=== PATIENT | female | born 1960 | race Caucasian/White ===

== ENCOUNTER 2017-12-10 10:54 | Emergency (ER) | payer OTHER, SELFPAY ==
[2017-12-10 10:56] VITALS: BP 86/54; PULSE 69; RESP 14; TEMP 36.5; O2SAT 100; BMI 22.1
--- NOTE | 2017-12-10 12:07 | ED.VISSUMM ---
- ER Visit Summary Date of Service: 12/10/17 Chief Complaint: [Injury right fifth toe] History of Present Illness: The patient is a 57 F [presents the emergency department with complaint of injury to her right small toe that occurred prior to arrival in the emergency department. Patient states that she accidentally kicked the couch.] Physical Examination: [Right foot-patient does have obvious deformity to the small toe with lateral angulation. Normal sensation. Normal cap refill. Patient does have tenderness over the proximal phalanx.] Test Results: [X-rays of the right toes that show a fracture of the proximal phalanx.] Emergency Department Course and Treatment: [Patient had a digital block performed using 1% lidocaine total of 4 cc used. During the performance of the digital block the toe easily reduced to a more normal anatomic position.] Treatment Plan: [Patient will have toes shaquille taped and will be given a postop shoe.] Patient will be given a prescription for [place] for pain. Disposition: [Discharged home in stable condition] patient advised to follow-up with primary care physician in 5-7 days. Impression: [Right fifth toe fracture.] This note was generated with [employer] dictation software. It may contain incorrect words, spelling, and punctuation that were not noted in review of the chart prior to signing ED Disposition - Plan for ED Patient: Chief Complaint: Lower Extremity Injury Referrals: Irma Simental DO [Primary Care Provider] -
--- NOTE | 2017-12-10 12:09 | ED.DEP ---
ED Disposition - Plan for ED Patient: Chief Complaint: Lower Extremity Injury Instructions: ED Fx Toe Closed Prescriptions: Hydrocodone/Acetaminophen [[place] 5-325 Tablet] 1 ea PO 4X/DAY PRN PRN 5 Days #20 tab PRN Reason: Pain Referrals: Irma Simental DO [Primary Care Provider] - 5-7 Days
[2017-12-10 12:47] VITALS: BP 130/80; PULSE 80; RESP 18; TEMP 36.6; O2SAT 99
== END 2017-12-10 13:08 | disposition home or self-care (01) ==
PROVIDERS: Emergency Provider Emergency Medicine; Family Provider Internal Medicine; PCP Internal Medicine
DX: S92.511A Displaced fracture of proximal phalanx of right lesser toe(s), initial encounter for closed fracture (principal); Z79.899 Other long term (current) drug therapy; W22.09XA Striking against other stationary object, initial encounter; Y93.89 Activity, other specified; Y92.008 Other place in unspecified non-institutional (private) residence as the place of occurrence of the external cause; Y99.8 Other external cause status
CPT/HCPCS: 28515; 26725; 73660; 99282

== ENCOUNTER → 2023-01-29 | Outpatient (CLI) | payer OTHER, SELFPAY | END | disposition home or self-care (01) | PROVIDERS: PCP Internal Medicine; Visit Provider Physician Assistant | DX: R30.0 Dysuria (principal) | CPT/HCPCS: 87086; 87088 ==

== ENCOUNTER → 2023-05-17 | Outpatient (CLI) | payer OTHER, SELFPAY ==
[2023-05-17 11:23] LABS: Cholesterol 203 mg/dL (200); High Density Lipoprotein 38 mg/dL; Triglycerides 134 mg/dL; Very Low Density Lipoprotein 27 mg/dL (5-40)
== END | disposition home or self-care (01) ==
LOC: LAB 10:08
PROVIDERS: PCP Internal Medicine; Referring Provider Internal Medicine Cardiovascular Disease; Visit Provider Internal Medicine Cardiovascular Disease
DX: I77.9 Disorder of arteries and arterioles, unspecified (principal)
CPT/HCPCS: 36415; 80061

== ENCOUNTER → 2023-05-30 | Outpatient (CLI) | payer OTHER, SELFPAY ==
--- NOTE | 2023-05-30 08:50 | CDU_ITS ---
Reason For Study: CAD Rt. Velocities/BP Lt. Velocities/BP Prox CCA 84.4/25.8 cm/sec. Prox CCA 90/28.6 cm/sec. Mid CCA 80.6/24.8 cm/sec. Mid CCA 81.4/27.4 cm/sec. Dist CCA 78.7/30.5 cm/sec. Dist CCA 82.6/29.8 cm/sec. Prox ICA 69.6/27.8 cm/sec. Prox ICA 121.1/35.3 cm/sec. Mid ICA 94.9/39.9 cm/sec. Mid ICA 115.8/43.3 cm/sec. Dist ICA 94.9/36.6 cm/sec. Dist ICA 81.4/29.8 cm/sec. Rt. ICA/CCA = 1.18. Lt. ICA/CCA = 1.47. Prox ECA 106.9/28.9 cm/sec. Prox ECA 90/24.9 cm/sec. Rt. Vert. 42.2/14.4 cm/sec. Lt. Vert. 52.2/20.1 cm/sec. Right Extracranial There is intimal thickening but no significant atherosclerotic plaque noted in the right common carotid artery. There is intimal thickening but no significant atherosclerotic plaque noted in the right internal carotid artery. There is intimal thickening but no significant atherosclerotic plaque noted in the right external carotid artery. Antegrade flow is noted in the right vertebral artery. Left Extracranial There is intimal thickening but no significant atherosclerotic plaque noted in the left common carotid artery. There is intimal thickening but no significant atherosclerotic plaque noted in the left internal carotid artery. There is intimal thickening but no significant atherosclerotic plaque noted in the left external carotid artery. Antegrade flow is noted in the left vertebral artery. Procedure Carotid Duplex 33669. This is a Carotid Duplex examination using B-mode, color flow and specral Doppler. Exam performed in department. VL/Carotid Duplex Ultrasound Interpretation Summary Normal right extracranial internal carotid. Normal left extracranial internal carotid. Patent and antegrade vertebrals bilaterally. Ordering Physician: Katherine Toro Referring Physician: Irma Simental M.D. Performed By: Shana Romero RVT
--- OUTSIDE RECORDS SUMMARY | 2023-05-30 09:11 | XMS RPT_ITS | CCD ---
Author Name Unknown Address [address] [place] [address] Organization [facility] Care Team Providers Care Stocking Inspector Name Role Phone YENNIFER KIRBY Admitting Unavailable YENNIFER KIRBY Attending Unavailable YENNIFER KIRBY Primary Care Unavailable YENNIFER KIRBY Consulting Unavailable PROVIDER, UNKNOWN Consulting Unavailable Irma Hwang DO Unavailable Mani ROSALES, Josse Story Unavailable [phone] Vianey Mejia RN Unavailable Unavailable Unavailable Unavailable Irma Hwang DO Unavailable Irma Hwang DO Primary Care Provider Irma Hwang DO Primary Care Provider IRMA HWANG Primary Care Unavailab IRMA Austin Primary Care Unavailab le Medications Current Medications Medication Drug Class(es) Dates Sig (Normalized) Sig (Original) cephalexin 500 mg oral capsule (2 sources) Cephalosporin Antibacterial Start: 11-17-2022 End: 11-24-2022 take 1 capsule by mouth twice daily cephALEXin (KEFLEX) 500 mg capsule Take 1 capsule by mouth twice daily for 7 days. 14 capsule 0 11/17/2022 11/24/2022 Active Completed/Discontinued Medications Medication Drug Class(es) Dates Sig (Normalized) Sig (Original) ALPRAZolam 0.5 mg oral tablet (2 sources) Benzodiazepine Start: 05-02-2017 take 1 tablet by mouth once daily at bedtime as needed ALPRAZolam 0.5 MG Oral Tablet 1 (one) Tablet qhs prn for 0 days Quantity: 20 {Tablet} Refills: 0 Ordered: 02-May-2017 Hola DO, Irma Tyler DO Start : 02-May-2017 Active Comments: [id number] Problems Active Problems Problem Classification Problem Date Documented Da te Episodic/Chronic Adjustment disorders (4 sources) Grief finding; Translations: [Grieving] 05-02-2017 Chronic Administrative/social admission (14 sources) Patient encounter status; Translations: [Nutritional counseling] 05-02-2017 Episodic Cardiac dysrhythmias (8 sources) Palpitations; Translations: [Palpitations] 05-02-2017 Episodic Genitourinary symptoms and ill-defined conditions (6 sources) Genuine stress incontinence; Translations: [Stress incontinence] 05-02-2017 Chronic Past or Other Problems Problem Classification Problem Date Documented Da te Episodic/Chronic Nonmalignant breast conditions (3 sources) Cyst of breast; Translations: [Solitary cyst of unspecified breast] Onset: 07-27-2009 07-27-2009 Episodic NEGATED: Highlighted row has been ruled out!Unclassified (2 sources) Problem Onset: 08-14-2013 05-02-2017 Results Test Name Value Interpretation Reference Range Facil ity Vital Signs Date Time Vital Sign Value Performing Clinician Facility 11-17-2022 08:20-0400 Body temperature 98.71 [degF] Gama Ruiz APRN.FACILITIES AND GROUNDS DIRECTOR Work Phone: [facility] 11-17-2022 08:20-0400 Body weight 63.96 kg Gama Ruiz APRN.FACILITIES AND GROUNDS DIRECTOR Work Phone: [facility] 11-17-2022 08:20-0400 Diastolic blood pressure 70 mm[Hg] Gama Ruiz TAX COLLECTION COORDINATOR.FACILITIES AND GROUNDS DIRECTOR Work Phone: [facility] 11-17-2022 08:20-0400 Heart rate 88 /min Gama Ruiz APRN.FACILITIES AND GROUNDS DIRECTOR Work Phone: [facility] 11-17-2022 08:20-0400 Respiratory rate 16 /min Gama Ruiz APRN.FACILITIES AND GROUNDS DIRECTOR Work Phone: [facility] 11-17-2022 08:20-0400 SaO2% (BldA) [Mass fraction] 96 % Gama Ruiz TAX COLLECTION COORDINATOR.FACILITIES AND GROUNDS DIRECTOR Work Phone: [facility] 11-17-2022 08:20-0400 Systolic blood pressure 126 mm[Hg] Gama Ruiz APRN.FACILITIES AND GROUNDS DIRECTOR Work Phone: [facility] 03-05-2022 19:48-0500 Body temperature 98.8 [degF] Lorie Berry APRN.FACILITIES AND GROUNDS DIRECTOR Work Phone: [facility] 03-05-2022 19:48-0500 Body weight 65.23 kg Lorie Berry APRN.FACILITIES AND GROUNDS DIRECTOR Work Phone: [facility] 03-05-2022 19:48-0500 Diastolic blood pressure 84 mm[Hg] Lorie Berry APRN.FACILITIES AND GROUNDS DIRECTOR Work Phone: [facility] 03-05-2022 19:48-0500 Heart rate 88 /min Lorie Berry APRN.FACILITIES AND GROUNDS DIRECTOR Work Phone: [facility] 03-05-2022 19:48-0500 Respiratory rate 21 /min Lorie Berry APRN.FACILITIES AND GROUNDS DIRECTOR Work Phone: [facility] 03-05-2022 19:48-0500 SaO2% (BldA) [Mass fraction] 100 % Lorie Berry APRN.FACILITIES AND GROUNDS DIRECTOR Work Phone: [facility] 03-05-2022 19:48-0500 Systolic blood pressure 122 mm[Hg] Lorie Berry APRN.FACILITIES AND GROUNDS DIRECTOR Work Phone: [facility] 05-02-2017 08:45-0500 Body height 160.02 cm Vianey Mejia RN [facility]; [facility] Work Phone: 05-02-2017 08:45-0500 Body mass index (BMI) [Ratio] 23.45 kg/m2 Vianey Mejia RN [facility]; [facility] Work Phone: 05-02-2017 08:45-0500 Body surface area Derived from formula 1.62 m2 Vianey Mejia RN [facility]; [facility] Work Phone: 05-02-2017 08:45-0500 Body weight 60.05 kg Vianey Mejia RN [facility]; [facility] Work Phone: 05-02-2017 08:45-0500 Diastolic blood pressure 78 mm[Hg] Vianey Mejia RN [facility]; [facility] Work Phone: Encounters Encounter Date Encounter Type Care Provider Facility Start: 11-18-2022 Telephone encounter Debby cook PA-C Work Phone: [facility] Procedures Date Procedure Procedure Detail Performing Clinician Start: 11-17-2022 Urnls dip stick/tablet rgnt auto w/o microscopy Debby Wall PA-C Work Phone: Start: 11-01-2018 End: 11-01-2018 TXT - Blood Flow Screening Procedure Note: See Note; NOTES: [facility] Cardiovascular Services [address] [place] [address] 10/30/18 0838 MR#: [id number] Acct: [id number] Name: BOB QUINTERO Rep #: [id number] : 1960 58 From: Adriel Ibarra MD Attending Dr: Self Referred Status: REG REF Ordering Dr: Date: 11/01/18 Location: [facility] Sex: F C Admitted: Reason For Study: screening Carotid Duplex Ultrasound Abdominal Aorta The left ECA velocity is less than 125 cm/s. The maximal outside diameter of the proximal aorta The right maximum ICA velocity is 74.7/33.0 cm/s. measures 1.06 x 1.15 cm in the cross-sectional There is insignificant plaque formation noted on axis. the right side. The maximal outside diameter of the proximal aorta The right ECA velocity is less than 125 cm/s. measures 1.12 cm in the longitudinal axis. The left maximum ICA velocity is 74.7/33.0 cm/s. There is insignificant plaque formation noted on the left side. Ankle Brachial Index The right ankle/ brachial index is 1.0. The left ankle/ brachial index is 1.0. Medical History and Assessment The heart rate is 75 beats per minute. The heart rhythm is regular. The right blood pressure is 124/82. The left blood pressure is 124/82. The assessment was performed by Jena Stewart RVT. Interpretation Summary Normal carotid artery screening (0 to 15% narrowing). Normal aortic ultrasound exam. The ankle/brachial index is normal (1.0 or greater). Performed By: Brad Stewart RVT 11/01/18 1256 Date Adriel Ibarra MD CC: Irma Hwang DO; Self Referred Date Dictated: 10/30/18 0838 Date Transcribed: 11/01/18 125 Licensing Worker: Signed Irma Hwang DO Work Phone: Start: 12-10-2017 End: 12-10-2017 Discharge Instruction Procedure Note: See Note; NOTES: [facility] Medical Records Department [address] [place] [address] Discharge Instruction 12/10/17 1209 MR#: [id number] Acct: [id number] Name: BOB QUINTERO Rep #: [id number] : 1960 57 From: Sheila Jack DO PCP: Irma Hwang DO Status: REG ER ED Disposition - Plan for ED Patient: Chief Complaint: Lower Extremity Injury Instructions: ED Fx Toe Closed Prescriptions: Hydrocodone/Acetaminophen [[place] 5-325 Tablet] 1 ea PO 4X/DAY PRN PRN 5 Days #20 tab PRN Reason: Pain Referrals: Irma Hwang DO [Primary Care Provider] - 5-7 Days What to do if you have Problems For any increased pain, shortness of breath, bleeding, nausea or vomiting, chest pain, or any unexpected problems, contact your Primary Care Provider. Call [facility] ([phone]) or report to the closest Emergency Room. Call 911 if necessary. 12/10/17 1210 <Electronically signed by Sheila Jack DO> Date Sheila Jack DO Cosigner Signature (If Indicated): Date CC: Irma Nielsen DO Work Phone: Start: 12-10-2017 End: 12-10-2017 Emergency Department Summary Procedure Note: See Note; NOTES: [facility] Medical Records Department [address] [facility] [place] [address] Emergency Department Summary 12/10/17 1207 MR#: [id number] Acct: [id number] Name: BOB QUINTERO Rep #: [id number] : 1960 57 From: Sheila Jack DO PCP: Irma Hwang DO Status: REG ER - ER Visit Summary Date of Service: 12/10/17 Chief Complaint: [Injury right fifth toe] History of Present Illness: The patient is a 57 F [presents the emergency department with complaint of injury to her right small toe that occurred prior to arrival in the emergency department. Patient states that she accidentally kicked the couch.] Physical Examination: [Right foot-patient does have obvious deformity to the small toe with lateral angulation. Normal sensation. Normal cap refill. Patient does have tenderness over the proximal phalanx.] Test Results: [X-rays of the right toes that show a fracture of the proximal phalanx.] Emergency Department Course and Treatment: [Patient had a digital block performed using 1% lidocaine total of 4 cc used. During the performance of the digital block the toe easily reduced to a more normal anatomic position.] Treatment Plan: [Patient will have toes shaquille taped and will be given a postop shoe.] Patient will be given a prescription for [place] for pain. Disposition: [Discharged home in stable condition] patient advised to follow-up with primary care physician in 5-7 days. Impression: [Right fifth toe fracture.] This note was generated with [employer] dictation software. It may contain incorrect words, spelling, and punctuation that were not noted in review of the chart prior to signing ED Disposition - Plan for ED Patient: Chief Complaint: Lower Extremity Injury Referrals: Irma Hwang DO [Primary Care Provider] - What to do if you have Problems For any increased pain, shortness of breath, bleeding, nausea or vomiting, chest pain, or any unexpected problems, contact your Primary Care Provider. Call [facility] ([phone]) or report to the closest Emergency Room. Call 911 if necessary. 12/10/17 1209 <Electronically signed by Sheila Jack DO> Date Sheila Jack DO Cosigner Signature (If Indicated): Date CC: Irma Nielsen DO Work Phone: Start: 12-10-2017 End: 12-10-2017 Toe(s) Min 2 Views Procedure Note: See Note; NOTES: [facility] Imaging Services [address] [place] [address] Toe(s) Min 2 Views MR#: [id number] Acct: [id number] Name: BOB QUINTERO Rep #: [id number] : 1960 F 57 From: Marcello Brar MD PCP: Irma Hwang DO Status: REG ER Study: Toe(s) Min 2 Views Date of Exam: 12/10/17 Exam# [id number] Ordering Dr: Sheila Jack DO STUDY: X-RAY RIGHT FOOT, FIFTH TOE REASON FOR EXAM: Female, 57 years old. Injury to the left toe. TECHNIQUE: 3 view(s) of the toe were obtained. COMPARISON: None. FINDINGS: Normal visualized metatarsus. Normal metatarsophalangeal (M.T.P) joint. Normal interphalangeal joints. Nondisplaced oblique fracture of the proximal phalanx of the fifth toe. Soft tissue swelling. RAD/Toe(s) Min 2 Views IMPRESSION: Nondisplaced oblique fracture of the proximal phalanx of the fifth toe with overlying soft tissue swelling. Electronically Signed: Marcello Brar MD at 12:24 EDT Tel [phone], Service support , CC: Irma Hwang DO; Sheila Jack DO Licensing Worker: Signed Irma Hwang DO Work Phone: Start: 06-14-2017 End: 06-13-2017 TXT - Blood Flow Screening Procedure Note: See Note; NOTES: [facility] Cardiovascular Services [address] [place] [address] 06/13/17 0854 MR#: [id number] Acct: [id number] Name: BOB QUINTERO Rep #: [id number] : 1960 56 From: Adriel Ibarra MD Attending Dr: OUT OF TOWN DOCTOR Status: REG REF Ordering Dr: Date: 06/13/17 Location: [facility] Sex: F C Admitted: Reason For Study: Blood flow screening Carotid Duplex Ultrasound Abdominal Aorta The right maximum ICA velocity is 114.0/48.7 The maximal outside diameter of the proximal cm/s. aorta measures 1.3 cm in the longitudinal axis. The left maximum ICA velocity is 112.0/45.8 cm/s.The maximal outside diameter of the proximal The right ECA velocity is less than 125 cm/s. aorta measures 1.4 x 1.4 cm in the cross- The left ECA velocity is less than 125 cm/s. sectional axis. There is no plaque formation noted on the right side. There is no plaque formation noted on the left side. Ankle Brachial Index The right ankle/ brachial index is 1.2. The left ankle/ brachial index is 1.1. Medical History and Assessment Pt has a hx of palpitations. The heart rate is 66 beats per minute. The heart rhythm is regular. The right blood pressure is 104/64. The left blood pressure is 104/68. The assessment was performed by Reginald Montelongo RVT. Interpretation Summary Normal carotid artery screening (0 to 15% narrowing). Normal aortic ultrasound exam. The ankle/brachial index is normal (1.0 or greater). Performed By: Kamila Montelongo RVT 06/13/171899 Date Adriel Ibarra MD CC: Irma Hwang DO Date Dictated: 06/13/17 0854 Date Transcribed: 06/13/171899 Licensing Worker: Signed Irma Hwang DO Work Phone: Start: 03-05-2017 End: 03-05-2017 Dexa Bone Density Study (HP) Procedure Note: See Note; NOTES: [facility] Imaging Services [address] [place] [address] Dexa Bone Density Study (HP) MR#: [id number] Acct: [id number] Name: BOB QUINTERO Rep #: [id number] : 1960 F 56 From: Marcello Brar MD PCP: Irma Hwang DO Status: REG CLI Study: Dexa Bone Density Study (HP) Date of Exam: 03/05/17 Exam# [id number] Ordering Dr: Irma Hwang DO STUDY: DUAL ENERGY X-RAY ABSORPTIOMETRY / DXA REASON FOR EXAM: Female, 56 years old. The patient is postmenopausal. Loss of height. TECHNIQUE: Bone Mineral Density (BMD) measurements of lumbar spine and bilateral hips were obtained. COMPARISON: Comparison is made with prior examination dated September 02, 2013. FINDINGS: Lumbar Spine (L1-L4): g/cm2 (1.093) / T-score (-0.7) / Z-score (0.3) Findings are suggestive of normal bone density with a low fracture risk. Left Femur Total: g/cm2 (0.849) / T-score (-1.3) / Z-score (-0.5) Left Femoral Neck: g/cm2 (0.761) / T-score (-2.0) / Z-score (-0.9) Right Femur Total: g/cm2 (0.813) / T-score (-1.5) / Z-score (-0.8) Right Femoral Neck: g/cm2 (0.801) / T-score (-1.7) / Z-score (-0.6) The T-Scores on the most recent prior examination were: Lumbar Spine (L1-L4): There has been worsening of bone density since the previous examination. Left Femur Total: which represents a worsening of 8.1%. Right Femur Total: which represents a worsening of 8.1%. HPBD/Dexa Bone Density Study (HP) IMPRESSION: The patient is considered osteopenic as outlined below according to World Baldo Organization (WHO) criteria with a moderate fracture risk. There has been worsening of bone density since the previous examination. Reference Information: The T-score is the number of standard deviations above or below the standard which is normal for young adults at their peak bone mineral density. The World Health Organization (WHO) interprets the T-scores as follows: Above -1 Normal bone density Between -1 and -2.5 Osteopenia Equal to / or below -2.5 Osteoporosis As a practical clinical guideline, osteopenia may be graded as follows: Mild -1 through -1.5 Moderate -1.6 through -2.0 Severe -2.1 through -2.4 The Z-score is the number of standard deviations above or below age-matched controls. A Z-score of less than -1.5 would be considered abnormal. References: 1. NIH Osteoporosis and Related Bone Diseases http://www.osteo.org 2. International Society for Clinical Densitometry http://www.iscd.org 3. National Osteoporosis Foundation http://www.nof.org Electronically Signed: Marcello Brar MD at 12:51 EST Tel [phone], Service support , CC: Irma Hwang DO Licensing Worker: Signed Irma Hwang DO Work Phone: Start: 03-05-2017 End: 03-05-2017 SCREENING MAMM (CAD), BILAT Procedure Note: See Note; NOTES: [facility] Imaging Services [address] [place] [address] SCREENING MAMM (CAD), BILAT MR#: [id number] Acct: [id number] Name: BOB QUINTERO [place] Rep #: [id number] : 1960 F 56 From: Marcello Brar MD PCP: Irma Hwang DO Status: [facility] Study: SCREENING MAMM (CAD), BILAT Date of Exam: 03/05/17 Exam# [id number] Ordering Dr: Irma Hwang DO MAMMOGRAPHY - BILATERAL SCREENING REASON FOR EXAM: Female, 56 years old. Routine annual screening examination. PERTINENT HISTORY: Non-contributory. TECHNIQUE: Digital bilateral breast raghav (3D mammographic acquisition) in the CC and MLO projections. 2-D mediolateral oblique (MLO) and craniocaudad (CC) views of both breasts were obtained. CAD: Full Field Digital Mammography with Computer Added Detection was performed. COMPARISON: Comparison is made with prior study dated January 02, 2016 and September 02, 2013. FINDINGS: Breast Composition: The breasts are heterogeneously dense, which may obscure small masses. There are no dominant masses or suspicious calcifications. No other significant abnormalities are identified. There has been no significant change since the prior study. HPBI/SCREENING MAMM (CAD), BILAT IMPRESSION: Stable bilateral screening mammogram. Yearly follow-up mammogram recommended. (A) ASSESSMENT CATEGORY: BIRADS Category 1: Negative. A letter regarding these results will be sent to the patient by the facility within 30 days. Approximately 10% of breast cancers are not detected by mammography. A normal mammogram should not delay biopsy of a clinically suspicious abnormality. [id number] Electronically Signed: Marcello Brar MD at 12:56 EST Tel [phone], Service support , CC: Irma Hwang DO Licensing Worker: Signed Irma Hwang DO Work Phone: Start: 01-02-2016 End: 01-02-2016 Echocardiogram Complete Procedure Note: See Note; NOTES: [facility] Cardiovascular Services [address] [place] [address] Echo Complete 01/02/16 0858 MR#: [id number] Acct: [id number] Name: BOB QUINTERO Rep #: [id number] : 1960 55 From: Arben Colunga MD Attending Dr: Sarah Heredia Status: REG CLI Ordering Dr: Sarah Heredia Date: 01/02/16 Location: [facility] Sex: F C Admitted: Reason For Study: Palpitations Procedure This was a 2D Doppler, Color Flow transthoracic echocardiogram. Exam performed in department. Left Ventricle Normal LV size. Left ventricular systolic function is normal. The estimated ejection fraction is 55 %. No regional wall motion abnormalities noted. Right Ventricle Normal RV size. Normal systolic function. Atria Normal left atrium. Normal right atrium. Mitral Valve Normal mitral valve. Mild (1+) eccentric mitral valve insufficiency. Tricuspid Valve Normal tricuspid valve. Mild (1+) tricuspid valve insufficiency. Aortic Valve Normal aortic valve. Trisinus/trileaflet aortic valve. Pulmonic Valve Normal pulmonic valve. Great Vessels Normal aortic root. The pulmonary artery is normal size. Normal inferior vena cava. Pericardium/Pleural No pericardial effusion. MMode/2D Measurements & Calculations LVIDd: 4.0 cm IVSd: 0.78 cm Ao root diam: 3.0 cm LVIDs: 2.7 cm LVPWd: 0.89 cm LA dimension: 3.3 cm RVDd: 2.6 cm FS: 32.8 % LAV(MOD-bp): 28.1 ml LA A4 area: 12.6 cm2 RA A4 area: 8.3 cm2 LAV(MOD-bp) Indexed: 17.8 ml/m2 LAV(MOD-sp2): 30.6 ml LAV(MOD-sp4): 25.2 ml Doppler Measurements & Calculations MV E max silvestre: 64.0 cm/sec Lat Peak E' Silvestre: 11.6 cm/sec Med Peak E' Silvestre: 8.1 cm/sec MV A max silvestre: 72.0 cm/sec E/E' lat: 5.5 E/E' med: 7.9 MV E/A: 0.89 Ao V2 max: 112.6 cm/sec LV V1 max: 103.4 cm/sec PA V2 max: 71.8 cm/sec Ao max P.1 mmHg LV V1 max P.3 mmHg Interpretation Summary Normal LV size. Left ventricular systolic function is normal. The estimated ejection fraction is 55 %. Structurally normal valves. Ordering Physician: Sarah Heredia Referring Physician: Irma Hwang M.D. Performed By: Karime Guzman RDCS 01/02/16 1052 Date Arben Colunga MD CC: Sarah Heredia; rIma Hwang DO Date Dictated: 01/02/16 0858 Date Transcribed: 01/02/16 105 Licensing Worker: Signed Sarah Heredia Work Phone: Start: 01-02-2016 End: 01-02-2016 Bilat Scrn Digital AND CAD Procedure Note: See Note; NOTES: [facility] Imaging Services [address] [place] [address] Verdana 4d Bilat Scrn Digital AND CAD MR#: [id number] Acct: [id number] Name: BOB QUINTERO Rep #: [id number] : 1960 F 55 From: Marcello Brar MD PCP: Irma Hwang DO Status: REG CLI Study: Bilat Scrn Digital AND CAD Date of Exam: 01/02/16 Exam# [id number] Ordering Dr: Sarah Heredia MAMMOGRAPHY - BILATERAL SCREENING REASON FOR EXAM: Female, 55 years old. Routine annual screening examination. PERTINENT HISTORY: Non-contributory. TECHNIQUE: Digital bilateral breast raghav (3D mammographic acquisition) in the CC and MLO projections. 2-D mediolateral oblique (MLO) and craniocaudad (CC) views of both breasts were obtained. CAD: Full Field Digital Mammography with Computer Added Detection was performed. COMPARISON: Comparison is made with prior study dated September 02, 2013. FINDINGS: Breast Composition: The breasts are heterogeneously dense, which may obscure small masses. There are no dominant masses or suspicious calcifications. No other significant abnormalities are identified. There has been no significant change since the prior study. [facility]/Bil Scrn Digital AND CAD IMPRESSION: Stable bilateral screening mammogram. Yearly follow-up mammogram recommended. (A) ASSESSMENT CATEGORY: BIRADS Category 1: Negative. A letter regarding these results will be sent to the patient by the facility within 30 days. Approximately 10% of breast cancers are not detected by mammography. A normal mammogram should not delay biopsy of a clinically suspicious abnormality. [id number] Electronically Signed: Marcello Brar MD at 9:10 EDT Tel [phone], Service support [phone], CC: Sarah Heredia; Irma Hwang DO Licensing Worker: Signed Sarah Heredia Work Phone: Start: 04-11-2015 End: 04-11-2015 12 lead ECG Procedure Note: See Note; NOTES: [facility] Cardiovascular Services [address] [place] [address] 12 Lead EKG 12/1912 MR#: [id number] Acct: [id number] Name: BOB QUINTERO Rep #: [id number] : 1960 54 From: Arben Colunga MD Attending Dr: Status: DEP ER Ordering Dr: Josse Miller MD Date: 04/07/15 Location: ED Sex: F C Admitted: Test Reason : DIZZINESS Blood Pressure : / mmHG Vent. Rate : 081 BPM Atrial Rate : 081 BPM P-R Int : 134 ms QRS Dur : 078 ms QT Int : 390 ms P-R-T Axes : 064 071 070 degrees QTc Int : 453 ms Normal sinus rhythm Normal ECG Confirmed by ARBEN COLUNGA MD ([id number]), scientific publications editor ANNEL VARELA ([id number]) on 04/11/2015 11:42:32 AM Referred By: BRAD Confirmed By:ARBEN COLUNGA MD 04/11/15 1142 Date Arben Colunga MD CC: Irma Hwang DO Date Dictated: 04/07/151912 Date Transcribed: 04/07/151912 Licensing Worker: Signed Irma Hwang DO Work Phone: Start: 04-07-2015 End: 04-07-2015 Emergency Department Summary Procedure Note: See Note; NOTES: [facility] Medical Records Department [address] [place] [address] Emergency Department Summary MR#: [id number] Acct: [id number] Name: BOB QUINTERO Rep #: [id number] : 1960 54 From: Josse Miller MD PCP: Irma Hwang DO Status: DEP ER DATE OF SERVICE: 04/07/2015 CHIEF COMPLAINT: Dizziness. HISTORY OF PRESENT ILLNESS: A 54-year-old who feels dizzy and off. Feels some vertigo. She also feels nausea. No disequilibrium just sometimes feels jittery. She has had prior episodes before where she was told she had vertigo and improved, she does not feel like the room is spinning. She feels like she is spinning. PHYSICAL EXAMINATION: VITAL SIGNS: Unremarkable vital signs. LUNGS: Clear. ABDOMEN: Soft and nontender. NEUROLOGIC: Alert and oriented x3. No focal deficit. She has a negative Romberg test. Normal gait and normal cerebellar function. EMERGENCY DEPARTMENT COURSE: CT unremarkable. Blood work unremarkable. Valium improved her symptoms. She is asymptomatic. I do not feel further testing is needed. She has a history of this in the past and no medical problems or risk factors for atherosclerosis. IMPRESSION: Vertigo, improved. DISPOSITION: Home, stable condition. Josse Miller MD T: NTS JOB: [id number] 04/07/154 <Electronically signed by Josse Miller MD> Date Josse Miller MD Cosigner Signature (If Indicated): Date CC: Irma Hwang DO Date Dictated: 04/07/152021 Date Transcribed: 04/07/152021 Licensing Worker: Signed Irma Hwang DO Work Phone: Start: 04-07-2015 End: 04-07-2015 Discharge Instruction Procedure Note: See Note; NOTES: [facility] Medical Records Department [address] [place] [address] Discharge Instruction 04/07/152018 MR#: [id number] Acct: [id number] Name: BOB QUINTERO Rep #: [id number] : 1960 54 From: Josse Miller MD PCP: Irma Hwang DO Status: REG ER ED Disposition - Plan for ED Patient: Disposition: Home or Assisted Living Chief Complaint: Dizziness Instructions: ED Dizziness, Unk Cause Referrals: Irma Hwang DO [Primary Care Provider] - 2 Days What to do if you have Problems For any increased pain, shortness of breath, bleeding, nausea or vomiting, chest pain, or any unexpected problems, contact your doctor. Call [facility] ([phone]) or report to the closest Emergency Room. Call 911 if necessary. 04/07/152019 <Electronically signed by Josse Miller MD> Date Josse Miller MD Cosigner Signature (If Indicated): Date CC: Irma Nielsen DO Work Phone: Start: 04-07-2015 End: 04-07-2015 Brain/Head without Contrast Procedure Note: See Note; NOTES: [facility] Imaging Services [address] [place] [address] Verdana 4d Brain/Head without Contrast MR#: [id number] Acct: [id number] Name: BOB QUINTERO N[place]chi Rep #: [id number] : 1960 F 54 From: Sergei Diehl MD PCP: Irma Hwang DO Status: REG ER Study: Brain/Head without Contrast Date of Exam: 04/07/15 Exam# [id number] Ordering Dr: Josse Miller MD STUDY: CT BRAIN WITHOUT CONTRAST REASON FOR EXAM: Female, 54 years old. Headache and dizziness. RADIATION DOSAGE (If Supplied By Facility): CTDIvol = ( 58.21 ) mGy, DLP = ( 953.23 ) mGycm TECHNIQUE: Transaxial CT imaging of the brain was performed without administration of intravenous contrast material. COMPARISON: None. FINDINGS: Normal soft tissue structures. Normal calvarium. Normal size ventricles and extra-axial spaces for the patient's age. Normal white matter tracts of the cerebral hemispheres. Normal basal ganglia and thalami. Normal brainstem. Normal cerebellum. There is no intracranial hemorrhage. There are no findings of an acute ischemic infarction. Normal visualized paranasal sinuses. IMPRESSION: No CT evidence of an acute intracranial process. If the patient's clinical findings warrant, a follow-up MRI brain would be recommended. Electronically Signed: Sergei Diehl MD at 19:44 EST , Service support [phone], CC: Irma Hwang DO; Josse Miller MD Licensing Worker: Signed Irma Hwang DO Work Phone: Start: 09-02-2013 End: 09-08-2013 Bilat Scrn Digital & CAD Procedure Note: See Note; NOTES: [facility] Imaging Services [address] [place] [address] Breast Imaging Report MR#: [id number] Acct: [id number] Name: BOB QUINTERO Rep #: [id number] : 1960 F 52 From: Marcello Brar MD PCP: Irma Hwang DO Status: REG CLI Exam# [id number] Ordering Dr: Irma Hwang DO MAMMOGRAPHY - BILATERAL SCREENING REASON FOR EXAM: Female, 52 years old. Routine annual screening examination. PERTINENT HISTORY: Non-contributory. TECHNIQUE: Digital examination. Mediolateral oblique (MLO) and craniocaudad (CC) views of both breasts were obtained. CAD: CAD was performed on this study. COMPARISON: Comparison is made with prior outside examination dated May 26, 2009 and May 16, 2009. FINDINGS: The breast composition is extremely dense, greater than 75% of the total breast volume, which lowers the sensitivity of mammography. There are no dominant masses or suspicious calcifications. No other significant abnormalities are identified. There has been no significant change since the prior study. IMPRESSION: Stable bilateral screening mammogram. Yearly follow-up recommended. (A) ASSESSMENT CATEGORY: BIRADS Category 2: Benign finding(s). A letter regarding these results will be sent to the patient by the facility within 30 days. Approximately 10% of breast cancers are not detected by mammography. A normal mammogram should not delay biopsy of a clinically suspicious abnormality. Electronically Signed: Marcello Brar MD at 8:40 EDT Tel [phone], Service support [phone], CC: Irma Hwang DO Licensing Worker: Signed Irma Hwang DO Work Phone: Start: 09-02-2013 End: 09-03-2013 Dexa Bone Density Study (HP) Procedure Note: See Note; NOTES: [facility] Imaging Services [address] [place] [address] Bone Density Report MR#: [id number] Acct: [id number] Name: BOB QUINTERO N[place]chi Rep #: [id number] : 1960 F 52 From: Marcello Brar MD PCP: Irma Hwang DO Status: [facility] Study: Dexa Bone Density Study (HP) Date of Exam: 09/02/13 Exam# [id number] Ordering Dr: Irma Hwang DO STUDY: DUAL ENERGY X-RAY ABSORPTIOMETRY / DXA REASON FOR EXAM: Female, 52 years old. The patient is postmenopausal. Loss of height. TECHNIQUE: Bone Mineral Density (BMD) measurements of lumbar spine and bilateral hips were obtained. COMPARISON: None. FINDINGS: Lumbar Spine (L1-L4): g/cm2 (1.204) / T-score (0.0) / Z-score (0.7) Findings are suggestive of normal bone density with a low fracture risk. Left Femur Total: g/cm2 (0.924) / T-score (-0.7) / Z-score (-0.1) Left Femoral Neck: g/cm2 (0.858) / T-score (-1.3) / Z-score (-0.3) Right Femur Total: g/cm2 (0.885) / T-score (-1.0) / Z-score (-0.4) Right Femoral Neck: g/cm2 (0.834) / T-score (-1.5) / Z-score (-0.5) IMPRESSION: The patient is considered osteopenic at the level of the femoral neck as outlined below according to World Baldo Organization (WHO) criteria with a moderate fracture risk. Reference Information: The T-score is the number of standard deviations above or below the standard which is normal for young adults at their peak bone mineral density. The World Health Organization (WHO) interprets the T-scores as follows: Above -1 Normal bone density Between -1 and -2.5 Osteopenia Equal to / or below -2.5 Osteoporosis As a practical clinical guideline, osteopenia may be graded as follows: Mild -1 through -1.5 Moderate -1.6 through -2.0 Severe -2.1 through -2.4 The Z-score is the number of standard deviations above or below age-matched controls. A Z-score of less than -1.5 would be considered abnormal. References: 1. NIH Osteoporosis and Related Bone Diseases http://www.osteo.org 2. International Society for Clinical Densitometry http://www.iscd.org 3. National Osteoporosis Foundation http://www.nof.org Electronically Signed: Marcello Brar MD at 11:10 EDT Tel [phone], Service support [phone], CC: Irma Hwang DO Licensing Worker: Signed Irma Hwang DO Work Phone: Start: 08-14-2013 End: 08-14-2013 No Known Past Surgical History Vianey Mejia RN Start: 05-16-2009 Mammography Lorie Berry APRN.[facility] Work Phone: Microscopic examinat ion of cervical Papanicolaou smear Vianey Mejia RN Plan of Treatment Date Care Activity Detail Author Start: 12-14-2022 Influenza vaccination INFLUENZA (#1) [facility] Start: 04-15-2022 DEPRESSION ASSESSMENT DEPRESSION ASSESSMENT [facility] Start: 04-15-2021 DEPRESSION ASSESSMENT DEPRESSION ASSESSMENT [facility] Start: 05-02-2017 Provider Instructions for Treatment Follow up in 4 weeks [facility] Work Phone: Start: 02-21-2017 Provider Instructions for Treatment [facility] Work Phone: Start: 02-04-2017 Provider Instructions for Treatment [facility] Work Phone: Start: 02-04-2017 Cytp cerv/vag auto thin layer prep mnl screen Thin prep Pap (87080) (no STD testing) [facility] Work Phone: Start: 01-09-2016 Provider Instructions for Treatment Follow up after consult [facility] Work Phone: Start: 12-23-2015 Provider Instructions for Treatment Follow up in 2 weeks [facility] Work Phone: Start: 08-14-2013 Provider Instructions for Treatment [facility] Work Phone: Start: 08-14-2013 Hpv, dna, amp probe HPV automatic (07723) [facility]; [facility] Work Phone: Start: 08-14-2013 Cytp cerv/vag auto thin layer prep mnl screen Thin prep Pap (71106) [facility] Work Phone: Start: 01-29-2013 HPV TESTING HPV TESTING [facility] Start: 01-29-2013 PAP TESTING PAP TESTING [facility] Start: 05-16-2010 Mammography MAMMOGRAM [facility] Start: 09-25-2009 SHINGRIX VACCINE (1 of 2) SHINGRIX VACCINE (1 of 2) [facility] Start: 09-25-2004 COLOGUARD (FIT-DNA) COLOGUARD (FIT-DNA) [facility] Start: 09-25-2004 Colonoscopy COLONOSCOPY [facility] Start: 09-25-2004 COLORECTAL CANCER SCREENING COLORECTAL CANCER SCREENING [facility] Start: 09-25-[address] COLONOGRAPHY [facility] Start: 09-25-2004 DIABETES SCREEN DIABETES SCREEN [facility] Start: 09-25-2004 FECAL OCCULT BLOOD FECAL OCCULT BLOOD [facility] Start: 09-25-2004 LIPID SCREEN LIPID SCREEN [facility] Start: 09-25-2004 SIGMOIDOSCOPY SIGMOIDOSCOPY [facility] Start: 09-25-1978 Urine microalbumin profile DTAP,TDAP,TD (1 - Tdap) [facility] Start: 09-25-1977 HEPATITIS C SCREENING HEPATITIS C SCREENING [facility] Start: 09-25-1977 HIV SCREENING HIV SCREENING [facility] Bacteria identified in Urine by Culture URINE CULTURE Microbiology Routine Gross hematuria Ordered: 11/17/2022 [facility] Work Phone: Immunizations Immunization Date Immunization Notes Care Provider Fa cility 01-01-2022 Seasonal, quadrivalent, recombinant, injectable influenza vaccine, preservative free Irma Hwang DO Work Phone: [facility] Work Phone: influenza virus vaccine, unspecified formulation Irma Hola DO Work Phone: [facility] Work Phone: Payers Date Payer Category Payer Unknown 2021 Unknown [id number] 1960 Unknown [id number] Unknown [id number] Social History Date Type Detail Facility Start: 03-23-2020 End: 11-17-2022 Caffeine Use Caffeine Use [facility]; [facility] Work Phone: Note 11-18-2022 Telephone Encounter - Pretty Weinberg MA - 11/18/2022 10:14 AM EDTTelephone Encounter - Debby Wall PA-C - 11/18/2022 10:06 AM EDT Note Date & Type Note Facility 11-18-2022 Miscellaneous Notes Formattin g of this note might be different from the original. Pt was notified of the results. Pt verbalized understanding. Pretty Weinberg MA Please call and let patient know her urine culture did not show significant infection. Would recommend close follow-up with PCP for the blood in urine. If antibiotics are helping can finish those but would still follow-up for the blood. documented in this encounter [facility] Progress note 11-17-2022 Note Date & Type Note Facility 11-17-2022 Note HNO ID: [id number] Author: Gama Ruiz APRN.[employer]DS DIRECTOR Service: ? Author Type: Nurse Practitioner Type: Progress Notes Filed: 11/17/2022 8:58 AM Note Text: Subjective HPI A nontoxic appearing female presents to urgent care with chief complaint of possible UTI. Duration of symptoms 1 day. Associated symptoms dysuria, frequency, and urgency. Has noticed some blood in urine. Noticed small clots. No vaginal bleeding. Patient has history of UTIs in past with similar signs and symptoms. States use of Pyridium for symptom management.. Patient states pain is a 5/10. Patient denies any fevers, flank pain, abdominal pain, nausea, vomiting, vaginal discharge, or urological abnormalities. Past medical history prescription medication use allergies reviewed. .Patient presents with: Hematuria: x last night PAST MEDICAL HISTORY Diagnosis Date NEGATIVE MEDICAL HISTORY PAST SURGICAL HISTORY Procedure Laterality Date NONE ALLERGIES Patient has no known allergies. MEDICATIONS progesterone micronized (PROMETRIUM) 200 mg capsule progesterone micronized 200 mg capsule thyroid 30 mg tablet [employer] Thyroid 30 mg tablet phenazopyridine (PYRIDIUM) 200 mg tablet Take 1 tablet by mouth three times daily as needed. MULTIVITAMIN TAB Take one(1) tablet daily. calcium carbonate/vitamin d3(CALCIUM 500 WITH VITAMIN D 500 MG-125 UNIT TAB) Take one(1) tablet twice daily. om-3/e/linol/ala/oleic/gla/lip(OMEGA 3-6-9 40 MG-60 MG-10 UNIT CAP) phenazopyridine (PYRIDIUM) 200 mg tablet Take 1 tablet by mouth three times daily as needed. (Patient not taking: Reported on 06/06/2021 ) Cyanocobalamin 1,000 mcg subl cyanocobalamin (vit B-12) 1,[address] 1 tablet by sublingual route. (Patient not taking: Reported on 06/06/2021) FAMILY HISTORY Problem Relation Age of Onset other (fibroids [Other]) Mother other (breast cysts [Other]) Sister benign Stroke Mother Hypertension Mother Hypertension Sister Diabetes Mother Thyroid Mother Social History Tobacco Use Smoking status: Never Smokeless tobacco: Never Substance Use Topics Alcohol use: No Drug use: No BP 126/70 Pulse 88 Temp 37.1 ?C (98.7 ?F) Resp 16 Wt 64 kg (141 lb) LMP 07/31/2012 SpO2 96% Review of Systems Constitutional: Negative for chills, fever and malaise/fatigue. HENT: Negative for congestion, ear discharge, ear pain, sinus pain and sore throat. Eyes: Negative for blurred vision, pain, discharge and redness. Respiratory: Negative for cough, hemoptysis, sputum production, shortness of breath, wheezing and stridor. Cardiovascular: Negative for chest pain. Gastrointestinal: Negative for abdominal pain, diarrhea, nausea and vomiting. Genitourinary: Positive for dysuria, frequency, hematuria and urgency. Negative for flank pain. Musculoskeletal: Negative for myalgias. Skin: Negative for itching and rash. Neurological: Negative for dizziness and headaches. Objective Physical Exam Constitutional: General: She is not in acute distress. Appearance: She is not toxic-appearing. HENT: Head: Normocephalic. Nose: Nose normal. Eyes: Pupils: Pupils are equal, round, and reactive to light. Cardiovascular: Rate and Rhythm: Normal rate. Pulmonary: Effort: Pulmonary effort is normal. No respiratory distress. Abdominal: Tenderness: There is no abdominal tenderness. There is no right CVA tenderness, left CVA tenderness or guarding. Musculoskeletal: Cervical back: Normal range of motion. Skin: General: Skin is warm and dry. Neurological: General: No focal deficit present. Mental Status: She is alert. ASSESSMENT/PLAN: 1. Gross hematuria - ICD9: 599.71, ICD10: R31.0 - UA DIP, URINE (POC) - URINE CULTURE With patient's symptoms and history of UTIs placed on Keflex and Pyridium. Patient was encouraged to follow-up with PCP or HOUSE VISITOR for repeat urinalysis after completion of antibiotics. Red flags for prompt evaluation discussed. Patient was educated on supportive therapies. Patient was instructed to immediately proceed to emergency room for any new, worsening, or symptoms lasting longer than anticipated. The patient's clinical presentation is otherwise unremarkable at this time. Based on exam and clinical finding, the patient is stable for discharge. Plan of care was discussed with patient. Patient verbalizes understanding and agrees to plan of care. This note was generated using Clean [employer] software. It may contain errors in wording, punctuation, or spelling. Gama Ruiz APRN.[facility] History of Present illness Narrative 11-17-2022 Gama Ruiz APRN.[facility] - 11/17/2022 8:29 AM EDT Note Date & Type Note Facility 11-17-2022 History of Presen t illness Narrative Subjective HPI A nontoxic appearing female presents to urgent care with chief complaint of possible UTI. Duration of symptoms 1 day. Associated symptoms dysuria, frequency, and urgency. Has noticed some blood in urine. Noticed small clots. No vaginal bleeding. Patient has history of UTIs in past with similar signs and symptoms. States use of Pyridium for symptom management.. Patient states pain is a 5/10. Patient denies any fevers, flank pain, abdominal pain, nausea, vomiting, vaginal discharge, or urological abnormalities. Past medical history prescription medication use allergies reviewed. .Patient presents with: Hematuria: x last night PAST MEDICAL HISTORY Diagnosis Date NEGATIVE MEDICAL HISTORY PAST SURGICAL HISTORY Procedure Laterality Date NONE ALLERGIES Patient has no known allergies. MEDICATIONS progesterone micronized (PROMETRIUM) 200 mg capsule progesterone micronized 200 mg capsule thyroid 30 mg tablet [employer] Thyroid 30 mg tablet phenazopyridine (PYRIDIUM) 200 mg tablet Take 1 tablet by mouth three times daily as needed. MULTIVITAMIN TAB Take one(1) tablet daily. calcium carbonate/vitamin d3(CALCIUM 500 WITH VITAMIN D 500 MG-125 UNIT TAB) Take one(1) tablet twice daily. om-3/e/linol/ala/oleic/gla/lip(OMEGA 3-6-9 40 MG-60 MG-10 UNIT CAP) phenazopyridine (PYRIDIUM) 200 mg tablet Take 1 tablet by mouth three times daily as needed. (Patient not taking: Reported on 06/06/2021 ) Cyanocobalamin 1,000 mcg subl cyanocobalamin (vit B-12) 1,[address] 1 tablet by sublingual route. (Patient not taking: Reported on 06/06/2021) FAMILY HISTORY Problem Relation Age of Onset other (fibroids [Other]) Mother other (breast cysts [Other]) Sister benign Stroke Mother Hypertension Mother Hypertension Sister Diabetes Mother Thyroid Mother Social History Tobacco Use Smoking status: Never Smokeless tobacco: Never Substance Use Topics Alcohol use: No Drug use: No BP 126/70 Pulse 88 Temp 37.1 C (98.7 F) Resp 16 Wt 64 kg (141 lb) LMP 07/31/2012 SpO2 96% Review of Systems Constitutional: Negative for chills, fever and malaise/fatigue. HENT: Negative for congestion, ear discharge, ear pain, sinus pain and sore throat. Eyes: Negative for blurred vision, pain, discharge and redness. Respiratory: Negative for cough, hemoptysis, sputum production, shortness of breath, wheezing and stridor. Cardiovascular: Negative for chest pain. Gastrointestinal: Negative for abdominal pain, diarrhea, nausea and vomiting. Genitourinary: Positive for dysuria, frequency, hematuria and urgency. Negative for flank pain. Musculoskeletal: Negative for myalgias. Skin: Negative for itching and rash. Neurological: Negative for dizziness and headaches. Objective Physical Exam Constitutional: General: She is not in acute distress. Appearance: She is not toxic-appearing. HENT: Head: Normocephalic. Nose: Nose normal. Eyes: Pupils: Pupils are equal, round, and reactive to light. Cardiovascular: Rate and Rhythm: Normal rate. Pulmonary: Effort: Pulmonary effort is normal. No respiratory distress. Abdominal: Tenderness: There is no abdominal tenderness. There is no right CVA tenderness, left CVA tenderness or guarding. Musculoskeletal: Cervical back: Normal range of motion. Skin: General: Skin is warm and dry. Neurological: General: No focal deficit present. Mental Status: She is alert. ASSESSMENT/PLAN: 1. Gross hematuria - ICD9: 599.71, ICD10: R31.0 - UA DIP, URINE (POC) - URINE CULTURE With patient's symptoms and history of UTIs placed on Keflex and Pyridium. Patient was encouraged to follow-up with PCP or HOUSE VISITOR for repeat urinalysis after completion of antibiotics. Red flags for prompt evaluation discussed. Patient was educated on supportive therapies. Patient was instructed to immediately proceed to emergency room for any new, worsening, or symptoms lasting longer than anticipated. The patient's clinical presentation is otherwise unremarkable at this time. Based on exam and clinical finding, the patient is stable for discharge. Plan of care was discussed with patient. Patient verbalizes understanding and agrees to plan of care. This note was generated using Clean [employer] software. It may contain errors in wording, punctuation, or spelling. Gama Ruiz APRN.[facility] documented in this encounter [facility] Progress note 03-05-2022 Note Date & Type Note Facility 03-05-2022 Note HNO ID: [id number] Author: Lorie Berry APRN.[facility] Service: ? Author Type: Nurse Practitioner Type: Progress Notes Filed: 03/05/2022 8:00 PM Note Text: CC: Patient presents with: Cough: Raspy throat, covid positive test at home HPI: Bob Quintero is a 61 year old female who presents to the office with complaint of head congestion and sore throat for a few days. Symptoms are staying the same. Associated symptoms includes cough. Denies nausea, vomiting , and diarrhea. Treatments tried include nothing so far. with no relief of symptoms. Sick contacts: unknown. History of asthma, frequent episodes of bronchitis, chronic bronchitis, bronchiectasis or COPD: No Smoker: No Seasonal/environmental allergies: No The ROS is otherwise negative. The patient's pmh, medications, allergies, and past visits are reviewed. PHYSICAL EXAM: BP 122/84 Pulse 88 Temp 37.1 ?C (98.8 ?F) Resp 21 Wt 65.2 kg (143 lb 12.8 oz) LMP 07/31/2012 SpO2 100% General appearance: alert, cooperative, pleasant, in no acute distress Head: Normocephalic Eyes: EOM's intact, conjunctiva pink and moist, no icterus, sclera white, non-injected Ears: Right ear: External ear/canal- Normal, TM - clear with good landmarks. Left ear: External ear/canal- Normal, TM - clear with good landmarks Oropharynx:moist without lesions, No erythema, exudates or tonsillar hypertrophy. Heart: Negative. RRR without obvious murmur, gallop, or rubs. No ectopy. Lungs: clear to auscultation, without rales or wheeze, good air exchange PAST MEDICAL HISTORY Diagnosis Date NEGATIVE MEDICAL HISTORY PAST SURGICAL HISTORY Procedure Laterality Date NONE ALLERGIES Patient has no known allergies. MEDICATIONS progesterone micronized (PROMETRIUM) 200 mg capsule progesterone micronized 200 mg capsule thyroid 30 mg tablet [employer] Thyroid 30 mg tablet MULTIVITAMIN TAB Take one(1) tablet daily. calcium carbonate/vitamin d3(CALCIUM 500 WITH VITAMIN D 500 MG-125 UNIT TAB) Take one(1) tablet twice daily. om-3/e/linol/ala/oleic/gla/lip(OMEGA 3-6-9 40 MG-60 MG-10 UNIT CAP) predniSONE (DELTASONE) 20 mg tablet Take 2 tablets by mouth once daily for 5 days. phenazopyridine (PYRIDIUM) 200 mg tablet Take 1 tablet by mouth three times daily as needed. (Patient not taking: Reported on 06/06/2021 ) Cyanocobalamin 1,000 mcg subl cyanocobalamin (vit B-12) 1,[address] 1 tablet by sublingual route. (Patient not taking: Reported on 06/06/2021) phenazopyridine (PYRIDIUM) 200 mg tablet Take 1 tablet by mouth three times daily as needed. (Patient not taking: Reported on 06/06/2021 ) FAMILY HISTORY Problem Relation Age of Onset other (fibroids [Other]) Mother other (breast cysts [Other]) Sister benign Stroke Mother Hypertension Mother Hypertension Sister Diabetes Mother Thyroid Mother Social History Tobacco Use Smoking status: Never Smokeless tobacco: Never Substance Use Topics Alcohol use: No Drug use: No ASSESSMENT/PLAN: 1. At increased risk of exposure to COVID-19 virus - ICD9: V15.89, ICD10: Z91.89 Does not want a new test Prednisone daily for 5 days Prescription instructions reviewed with patient as applicable. Potential red flag symptoms discussed with the patient. Reviewed appropriate action plan to take if red flag symptoms occur. Patient agreeable to treatment plan. Lorie Berry APRN.[facility] History of Present illness Narrative 03-05-2022 Lorie Berry APRN.[facility] - 03/05/2022 7:56 PM EST Note Date & Type Note Facility 03-05-2022 History of Presen t illness Narrative CC: Patient presents with: Cough: Raspy throat, covid positive test at home HPI: Bob Quintero is a 61 year old female who presents to the office with complaint of head congestion and sore throat for a few days. Symptoms are staying the same. Associated symptoms includes cough. Denies nausea, vomiting , and diarrhea. Treatments tried include nothing so far. with no relief of symptoms. Sick contacts: unknown. History of asthma, frequent episodes of bronchitis, chronic bronchitis, bronchiectasis or COPD: No Smoker: No Seasonal/environmental allergies: No The ROS is otherwise negative. The patient's pmh, medications, allergies, and past visits are reviewed. PHYSICAL EXAM: BP 122/84 Pulse 88 Temp 37.1 C (98.8 F) Resp 21 Wt 65.2 kg (143 lb 12.8 oz) LMP 07/31/2012 SpO2 100% General appearance: alert, cooperative, pleasant, in no acute distress Head: Normocephalic Eyes: EOM's intact, conjunctiva pink and moist, no icterus, sclera white, non-injected Ears: Right ear: External ear/canal- Normal, TM - clear with good landmarks. Left ear: External ear/canal- Normal, TM - clear with good landmarks Oropharynx:moist without lesions, No erythema, exudates or tonsillar hypertrophy. Heart: Negative. RRR without obvious murmur, gallop, or rubs. No ectopy. Lungs: clear to auscultation, without rales or wheeze, good air exchange PAST MEDICAL HISTORY Diagnosis Date NEGATIVE MEDICAL HISTORY PAST SURGICAL HISTORY Procedure Laterality Date NONE ALLERGIES Patient has no known allergies. MEDICATIONS progesterone micronized (PROMETRIUM) 200 mg capsule progesterone micronized 200 mg capsule thyroid 30 mg tablet [employer] Thyroid 30 mg tablet MULTIVITAMIN TAB Take one(1) tablet daily. calcium carbonate/vitamin d3(CALCIUM 500 WITH VITAMIN D 500 MG-125 UNIT TAB) Take one(1) tablet twice daily. om-3/e/linol/ala/oleic/gla/lip(OMEGA 3-6-9 40 MG-60 MG-10 UNIT CAP) predniSONE (DELTASONE) 20 mg tablet Take 2 tablets by mouth once daily for 5 days. phenazopyridine (PYRIDIUM) 200 mg tablet Take 1 tablet by mouth three times daily as needed. (Patient not taking: Reported on 06/06/2021 ) Cyanocobalamin 1,000 mcg subl cyanocobalamin (vit B-12) 1,[address] 1 tablet by sublingual route. (Patient not taking: Reported on 06/06/2021) phenazopyridine (PYRIDIUM) 200 mg tablet Take 1 tablet by mouth three times daily as needed. (Patient not taking: Reported on 06/06/2021 ) FAMILY HISTORY Problem Relation Age of Onset other (fibroids [Other]) Mother other (breast cysts [Other]) Sister benign Stroke Mother Hypertension Mother Hypertension Sister Diabetes Mother Thyroid Mother Social History Tobacco Use Smoking status: Never Smokeless tobacco: Never Substance Use Topics Alcohol use: No Drug use: No ASSESSMENT/PLAN: 1. At increased risk of exposure to COVID-19 virus - ICD9: V15.89, ICD10: Z91.89 Does not want a new test Prednisone daily for 5 days Prescription instructions reviewed with patient as applicable. Potential red flag symptoms discussed with the patient. Reviewed appropriate action plan to take if red flag symptoms occur. Patient agreeable to treatment plan. Lorie Berry APRN.[facility] documented in this encounter [facility] Evaluation note Note Date & Type Note Facility documented in this encounter [facility] Evaluation note Note Date & Type Note Facility documented in this encounter [facility] Instructions Note Date & Type Note Facility [facility]; [facility] Work Phone: Summary Purpose Family History Unknown Family Member Name Dates Details Heart Disease Comments:Mother. Status:Active Hypertension Comments:Mother. Father. Status:Active Advance Directives No Advanced Directives Records FoundNo Advanced Directives Records Found Additional Source Comments INFORMATION SOURCE (unrecogn ized section and content) DATE CREATED AUTHOR AUTHOR'S LASHANDAIZ ATION 11/18/2022 [facility] Source Comments (unrecognize d section and content) In the event this informatio n is protected by the Federal Confidentiality of Alcohol and Drug Abuse Patient Records regulations: The Federal rules restrict any use of the information to criminally investigate or prosecute any alcohol or drug abuse patient.[facility] the event this information is protected by the Federal Confidentiality of Alcohol and Drug Abuse Patient Records regulations: The Federal rules restrict any use of the information to criminally investigate or prosecute any alcohol or drug abuse patient.[facility] the event this information is protected by the Federal Confidentiality of Alcohol and Drug Abuse Patient Records regulations: The Federal rules restrict any use of the information to criminally investigate or prosecute any alcohol or drug abuse patient.[facility] Reason for Visit (unrecogniz ed section and content) Specialty Diagnoses / Procedures Referred By Ricarda t Referred To Contact [facility] / [facility] Diagnoses covid exposure, and positive covid test, raspy throat Procedures NEW SAME DAY [facility] [address] [place] [address] Referral ID Status Reason Start Date Expiration Date V isits Requested Visits Authorized [id number] Outside PCP 03/05/2022 06/03/2022 1 1 Reason Comments Hematuria x last night Reason Comments Results Care Teams (unrecognized sec tion and content) 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 This clinical summary was aggregated from multiple sources. Caution should be exercised in using it in the provision of clinical care. This summary normalizes information from multiple sources, and as a consequence, information in this document may materially change the coding, format and clinical context of patient data. In addition, data may be omitted in some cases. CLINICAL DECISIONS SHOULD BE BASED ON THE PRIMARY CLINICAL RECORDS. [employer] provides no warranty or guarantee of the accuracy or completeness of information in this document.
== END | disposition home or self-care (01) ==
LOC: CVS 08:49
PROVIDERS: PCP Internal Medicine; Referring Provider Internal Medicine Cardiovascular Disease; Visit Provider Internal Medicine Cardiovascular Disease
DX: I77.9 Disorder of arteries and arterioles, unspecified (principal); R00.2 Palpitations
CPT/HCPCS: 93225; 93226; 93880

== ENCOUNTER → 2023-08-13 | Outpatient (CLI) | payer OTHER, SELFPAY ==
[2023-08-13 11:21] LABS: Absolute Lymphocyte Count 2.49 X10^3/uL (0.83-4.51); Absolute Neutrophil Count 7.1 X10^3/uL (2.0-7.7); Basophil# 0.04 X10^3/uL; Basophil% 0.4 % (0-1); Eosinophil# 0.09 X10^3/uL; Eosinophils% 0.9 % (0-5); Hematocrit 41.6 % (37-47); Hemoglobin 13.6 g/dL (12.0-15.0); Lymphocyte # 2.49 X10^3/ul (0.83-4.51); Mean Corp Hgb Conc 32.7 g/dL (32-36); Mean Corpuscular Hgb 30.3 pg (27.0-32.0); Mean Corpuscular Volume 92.7 fL (81-99); Mean Platelet Vol. 9.3 fl (6.2-12.0); Monocyte# 0.65 X10^3/uL; Monocyte% 6.3 % (0-10); NRBC Flagged by Analyzer 0 % (0-5); Neutrophil # 7.05 X10^3/uL (2.7-7.7); Neutrophil % 67.8 % (47-70); Platelet Count 333 K/mm3 (150-450); RBC Distribution Width SD 47.2 fl (35.1-43.9); Red Blood Count 4.49 M/mm3 (4.2-5.4); White Blood Count 10.4 K/mm3 (4.4-11.0)
[2023-08-13 11:59] LABS: ALB/GLOB Ratio 1.2 RATIO (0.9-2.4); AST(SGOT) 20 U/L (15-37); Alanine Aminotransfer ALT/SGPT 22 U/L (13-56); Albumin, Serum 3.8 g/dL (3.2-5.0); Alkaline Phosphatase 45 U/L (45-117); Anion Gap 4 (5-15); BUN 9 mg/dL (7-18); BUN/Creat Ratio 10.4 RATIO (10-20); Bilirubin, Direct 0.17 mg/dL (0.00-0.30); Calcium,Total 8.9 mg/dL (8.5-10.1); Chloride 108 mmol/L (98-107); Cholesterol 160 mg/dL (200); Creatinine, Serum 0.87 mg/dL (0.55-1.02); EST Glomerular Filtration Rate 70 mL/min (>60); Est Glom Filt Rate - Afr Amer 85 mL/min (>60); Globulin 3.2 g/dL (2.2-4.2); Glucose 108 mg/dL (74-106); High Density Lipoprotein 46 mg/dL; Potassium 3.6 mmol/L (3.5-5.1); Sodium Level 140 mmol/L (136-145); Thyroid Stim Hormone (TSH) 0.72 uIU/mL (0.358-3.74); Triglycerides 110 mg/dL; Very Low Density Lipoprotein 22 mg/dL (5-40)
== END | disposition home or self-care (01) ==
LOC: LAB 10:51
PROVIDERS: Physician Assistant Medical; PCP Internal Medicine; Referring Provider Internal Medicine; Visit Provider Internal Medicine
DX: E78.5 Hyperlipidemia, unspecified (principal); R00.2 Palpitations
CPT/HCPCS: 36415; 80053; 80061; 82248; 84443; 85025

== ENCOUNTER → 2023-08-20 | Outpatient (CLI) | payer OTHER, SELFPAY ==
--- NOTE | 2023-08-20 10:06 | BI_ITS ---
MAMMOGRAPHY - BILATERAL SCREENING REASON FOR EXAM: Female, 62 years old. Routine annual screening examination. PERTINENT HISTORY: Non-contributory. TECHNIQUE: Digital bilateral breast amari (3D mammographic acquisition) in the CC and MLO projections. 2-D mediolateral oblique (MLO) and craniocaudad (CC) views of both breasts were obtained. CAD: Full Field Digital Mammography with Computer Added Detection was performed. COMPARISON: Comparison is made with prior study March 05, 2017 and January 02, 2016. FINDINGS: Breast Composition: The breasts are extremely dense, which lowers the sensitivity of mammography. There are no dominant masses or suspicious calcifications. No other significant abnormalities are identified. There has been no significant change since the prior study. BI/SCRN MAMM (CAD)W/AMARI BILAT IMPRESSION: Stable bilateral screening mammogram. Yearly follow-up mammogram recommended. (A) ASSESSMENT CATEGORY: BIRADS Category 1: Negative. A letter regarding these results will be sent to the patient by the facility within 30 days. Approximately 10% of breast cancers are not detected by mammography. A normal mammogram should not delay biopsy of a clinically suspicious abnormality. [id number] Electronically Signed: Marcello Brar MD at 11:15 EDT ,
== END | disposition home or self-care (01) ==
LOC: OPBI 10:06
PROVIDERS: PCP Internal Medicine; Referring Provider Internal Medicine; Visit Provider Internal Medicine
DX: Z12.31 Encounter for screening mammogram for malignant neoplasm of breast (principal)
CPT/HCPCS: 77063; 77067

== ENCOUNTER → 2023-08-26 | Outpatient (CLI) | payer OTHER, SELFPAY | END | disposition home or self-care (01) | LOC: LAB 14:23 | PROVIDERS: PCP Internal Medicine; Referring Provider Internal Medicine; Visit Provider Internal Medicine | DX: Z00.00 Encounter for general adult medical examination without abnormal findings (principal) ==

== ENCOUNTER → 2023-10-02 | Outpatient (CLI) | payer OTHER, SELFPAY ==
--- NOTE | 2023-10-02 10:27 | MRI_ITS ---
STUDY: BILATERAL BREAST MR WITHOUT AND WITH CONTRAST REASON FOR EXAM: Female, 63 years old. Extremely dense breasts. Screening for breast cancer. TECHNIQUE: Multi-sequence multi-echo imaging of both breasts was performed with a dedicated breast coil. T1-weighted and T2-weighted images were performed before the administration of contrast. T1-weighted images were also performed after the intravenous administration of 12 mL of Clariscan contrast. COMPARISON: Bilateral mammograms dated August 20, 2023 and March 05, 2017 FINDINGS: RIGHT BREAST: Extremely dense fibroglandular tissue with minimal background enhancement. No abnormal enhancing masses or areas of non-mass enhancement in the right breast. LEFT BREAST: Extremely dense fibroglandular tissue with minimal background enhancement. No abnormal enhancing masses or areas of non-mass enhancement in the right breast. No enlarged or abnormal lymph nodes. No abnormality in the visualized regions of the chest or liver. MRI/Breast Bilateral W/O and W IMPRESSION: Extremely dense fibroglandular tissue with minimal background enhancement. No other abnormality on the breast MRI with contrast. Yearly screening mammogram recommended. Screening mammogram may be alternated with MRI with contrast for surveillance. CATEGORY: Electronically Signed: Yung Vaca MD at 12:40 EDT ,
[2023-10-02 11:01] LABS: CREATININE FINGERSTICK < 1.0 mg/dL (0.55-1.02); EGFR FINGERSTICK > 60.0000 mL/min (>60)
== END | disposition home or self-care (01) ==
PROVIDERS: PCP Internal Medicine; Referring Provider Internal Medicine; Visit Provider Internal Medicine
DX: Z01.812 Encounter for preprocedural laboratory examination (principal); R92.343 Mammographic extreme density, bilateral breasts
CPT/HCPCS: 77049; A9575; A4216; C8908

== ENCOUNTER → 2024-10-22 | Outpatient (CLI) | payer MEDICARE, SELFPAY ==
[2024-10-22 11:48] LABS: AST(SGOT) 17 U/L (<=31); Alanine Aminotransfer ALT/SGPT 14 U/L (<=34); Albumin, Serum 4.2 g/dL (3.4-4.8); Alkaline Phosphatase 51 U/L (35-104); Bilirubin, Direct 0.18 mg/dL (0.00-0.30); Cholesterol 146 mg/dL (<=200); Globulin 2.4 g/dL (2.2-4.2); Low Density Lipoprotein Calc. 69 mg/dL; Triglycerides 150 mg/dL; Very Low Density Lipoprotein 30 mg/dL (5-40); cholesterol:hdl ratio screen 3.08
== END | disposition home or self-care (01) ==
LOC: LAB 10:29
PROVIDERS: PCP Internal Medicine; Referring Provider Nurse Practitioner Gerontology; Visit Provider Nurse Practitioner Gerontology
DX: E78.5 Hyperlipidemia, unspecified (principal)
CPT/HCPCS: 36415; 80061; 80076